=== PATIENT | female | born 1950 | race Two or more races ===

== ENCOUNTER → 2019-09-19 | Outpatient (CLI) | payer MEDICARE, MEDICAID ==
[~2019-09-19] VITALS: Ht 162.6 cm; Wt 60.8 kg
[~2019-09-19] MED LIST: CALCIUM600 M1 PO; CITALOPRAM HBR10 M1 ORAL; ENALAPRIL MALEA10 MG ORAL; GABAPENTIN100 MG ORAL; LORATADINE10 M1 PO; METFORMIN HCL500 M1 ORAL; NAPROXEN375 M2 ORAL; NAPROXEN500 M2 ORAL; NASAL SPRAY30 M4 NS; NITRO0.4 SL; SIMVASTATIN40 MG ORAL
[2019-09-19 14:39] VITALS: BP 108/68
--- NOTE | 2019-09-19 15:45 | Consultation ---
DATE OF CONSULTATION: 09/19/2019 CONSULTING PHYSICIAN: Casey Greenfield M.D. CHIEF COMPLAINT: Acid reflux disease, heartburn. HISTORY OF PRESENT ILLNESS: A very pleasant 69-year-old female with multiple medical problems, which I will dictate in a second, who has been having severe chest pain, being followed by Cardiology. Also was given different medication including ranitidine, which was stopped because it was off of the market. She was given famotidine and omeprazole. She had a reaction to both, had a skin rash, so it was stopped. So, the patient was referred here for endoscopy for evaluation of the cause of her chest pain and GERD. PAST MEDICAL HISTORY: 1. Diabetes. 2. Hypertension. 3. Depression. 4. Hypercholesteremia. MEDICATIONS: Please see medication reconciliation list. FAMILY HISTORY: No family of GI malignancies. SOCIAL HISTORY: The patient denies any tobacco, alcohol, or drug abuse. ALLERGIES: Allergic to omeprazole and famotidine, giving her skin rash. REVIEW OF SYSTEMS: Positive for abdominal pain, bloating, gas, chest pain. PHYSICAL EXAMINATION: VITAL SIGNS: Temperature 97.6, blood pressure , pulse , respirations 20. HEENT: Normocephalic and atraumatic. Sclerae anicteric. NECK: Supple. No evidence of obvious lymphadenopathy. CARDIOVASCULAR: Regular rate and rhythm. Plus S1 and S2. LUNGS: Clear to auscultation bilaterally. ABDOMEN: Positive bowel sounds. Soft and nontender. No rebound. No guarding. No peritoneal sign. EXTREMITIES: No cyanosis, no clubbing, no edema. ASSESSMENT AND PLAN: This is a 69-year-old female with chronic GERD symptoms, not able to take omeprazole or famotidine given the skin rash. The patient is also having some chest pain, most probably not cardiac in origin. So, the patient was referred for endoscopy. The patient was informed of the risks and benefits of the procedure. The patient agreed to have it done. We will plan to get an authorization from the insurance and schedule that when obtained. Meanwhile, the patient to follow up with Cardiology to get the final report that she has no cardiac issues. Casey Gonzalez Greenfield DR: RANDY JOB#: [id number] CC:
== END | disposition home or self-care (01) ==
LOC: PAN 09:56
DX: K21.9 Gastro-esophageal reflux disease without esophagitis (principal); R12 Heartburn; E11.9 Type 2 diabetes mellitus without complications; I10 Essential (primary) hypertension; F32.9 Major depressive disorder, single episode, unspecified; E78.00 Pure hypercholesterolemia, unspecified; R10.9 Unspecified abdominal pain; R14.0 Abdominal distension (gaseous); R07.9 Chest pain, unspecified
CPT/HCPCS: G0463